=== PATIENT | male | born 1960 | race Caucasian/White ===

== ENCOUNTER 2017-01-31 14:59 | Emergency (ER) | payer MEDICAID ==
[~2017-01-31] VITALS: Ht 170.2 cm; Wt 50.0 kg
[2017-01-31 14:59] VITALS: BP 80/40
[~2017-01-31 14:59] MED LIST: ALBUTEROL S2.5 MG/.5 IN; AMOXICILLIN250 M1 PO; ARTANE2 MG PO; ASPIRIN LOW DOS81 M2 PO; AUGMENTIN500TAB PO; AUGMENTIN875TAB PO; AZITHROMYCIN500 MG PO; BACTRIM DS1 TAB PO; BENZTROPINE0.5 MG PO; CARBAMAZEPIN200 MG PO; FLUPHENAZINE5 MG PO; INVEGA SUST156 MG/ML IM; IPRATROPIU0.5 MG/3 M NEB; LISINOPRIL2.5 MG PO; LORTAB 5/3255 MG PO; Levaquin PO; MEDDOSEPAK PO; MUCINEX600 MG PO; NAPROSYN500 MG PO; NICOTINE T21 MG/PATC TD; OXY1; PREDNISONE10 MG PO; PREDNISONE20 MG PO; PREDNISONE50 MG PO; PROAIR HFA IN; PROLIXIN 5 MG TA5 MG PO; QUETIAPINE FUM100 MG PO; QVAR40 MCG IN; SEROQUEL100 MG PO; STERAPRED DS10 MG PO; SYMBICORT1 AE1 IN; TEGRETOL200 MG PO; TRAMADOL HCL50 MG PO; TRAVATAN Z0.004 % OU; TRAVATAN0.0041 OP; TRAVATAN0.0041 OU; TRIHEXYPHEN2 MG PO; TRIHEXYPHENIDYL5 MG PO; ZITHROMAX500 MG PO; ZPAK PO; [UNRECOGNIZED DRUG - OTHER] IM; [UNRECOGNIZED DRUG - OTHER] IM; [UNRECOGNIZED DRUG - REMARK] IM
[2017-01-31 16:17] LABS: HEMATOCRIT 39.5 % (39.0-50.0); HEMOGLOBIN 11.8 g/dl (14.0-18.0); IMMATURE GRANULOCYTES 3.1 % (0.0-1.0); MEAN CELL VOLUME 105.1 fL CALC (80.0-100.0); MEAN CORPUSCULAR HGB 31.4 pG CALC (26.0-32.0); MEAN CORPUSCULAR HGB CONC 29.9 g/L CALC (32.0-36.0); NEUT# 12.75 thou/uL (1.82-7.42); RED BLOOD COUNT 3.76 mill/uL (4.70-6.10); RED CELL DISTRI WIDTH 15.2 % (11.5-15.5)
[2017-01-31 16:30] LABS: ALBUMIN 3.2 g/dL (3.2-5.0); BILIRUBIN, TOTAL 0.6 mg/dL (0.0-1.4); CALCIUM 7.9 mg/dL (8.4-10.2); CREATININE 2.8 mg/dL (0.7-1.3); TOTAL PROTEIN 5.5 g/dL (6.3-8.2)
[2017-01-31 17:00] LABS: POTASSIUM 5.2 mmol/l (3.5-5.1)
[2017-01-31 17:04] LABS: URINE BILIRUBIN - DIPSTICK NEGATIVE (NEGATIVE); URINE BLOOD DIPSTICK TRACE-LYSED (NEGATIVE); URINE CLARITY CLEAR; URINE COLOR YELLOW; URINE GLUCOSE - DIPSTICK NEGATIVE (NEGATIVE); URINE KETONE NEGATIVE (NEGATIVE); URINE LEUK ESTERASE TRACE (NEGATIVE); URINE NITRITE - DIPSTICK NEGATIVE (Negative); URINE PH 5.5 (4.5-8.0); URINE PROTEIN - DIPSTICK 100 mg/dL (NEG-TRACE); URINE SPECIFIC GRAVITY >=1.030; URINE UROBILINOGEN - DIPSTICK 0.2 E.U./dL (0.2)
[2017-01-31 17:20] LABS: URINE SQUAMOUS EPITHELIAL CELL FEW EPI/hpf (0-FEW); URINE YEAST MANY hpf
[2017-01-31 17:34] LABS: BARBITURATES NEGATIVE (NEGATIVE); COCAINE NEGATIVE (NEGATIVE); METHADONE NEGATIVE (NEGATIVE); OXCYCODONE NEGATIVE (NEGATIVE); TETRAHYDROCANNABIONOL POSITIVE (NEGATIVE)
[2017-01-31 17:36] LABS: TRICYLIC ANTIDEPRESSANTS NEGATIVE (NEGATIVE)
== END 2017-01-31 17:10 | disposition expired | DRG 192 ==
LOC: ED 14:59 → EDBD 14:59 → ED 17:10
PROVIDERS: Emergency Medicine
DX: J44.9 Chronic obstructive pulmonary disease, unspecified (principal); Z91.14 Patient's other noncompliance with medication regimen; I46.9 Cardiac arrest, cause unspecified